=== PATIENT | female | born 2000 | race Caucasian/White ===

== ENCOUNTER → 2018-02-04 | Outpatient (CLI) | payer BC ==
--- NOTE | 2018-02-04 13:31 | Diagnostic Imaging Report ---
PROCEDURE: US Thyroid. TECHNIQUE: Multiple real-time grayscale images were obtained of the thyroid in various projections. INDICATION: Enlarged thyroid. COMPARISON: No prior studies are available for comparison. FINDINGS: The right lobe of the thyroid measures 4.4 x 1.8 x 1.4 cm and the left lobe measures 4.4 x 1.7 x 1.4 cm. The isthmus is thickened at 6 mm. Both lobes are heterogeneous but no discrete thyroid mass is detected. IMPRESSION: Thyroid heterogeneity. No discrete mass is detected. Dictated by: Dictated on workstation # [id number]
== END ==
LOC: RAD 12:05
PROVIDERS: ATTEND Internal Medicine
DX: E04.9 Nontoxic goiter, unspecified (principal)
CPT/HCPCS: 76536